=== PATIENT | female | born 1960 | race Caucasian/White ===

== ENCOUNTER → 2018-10-17 | Outpatient (CLI) | payer BC ==
[~2018-10-17] MED LIST: ALPR0.254 PO; HYDR25TA11 PO; NEBI10TA3 PO; ROSU20TA2 PO
[2018-10-17 09:51] LABS: BASOPHILS # (AUTO) 0.03 x10^3/uL (0-0.1); BASOPHILS % (AUTO) 0 % (0-1); EOSINOPHILS # (AUTO) 0.09 x10^3/uL (0-0.4); EOSINOPHILS % (AUTO) 1 % (1-7); LYMPHOCYTES # (AUTO) 1.17 x10^3/uL (1-3.4); LYMPHOCYTES % (AUTO) 18 % (22-44); MD NO; MEAN CORPUSCULAR HEMOGLOBIN 30.1 pg (27.0-34.8); MEAN CORPUSCULAR HGB CONC 33.6 g/dL (32.4-35.8); MEAN CORPUSCULAR VOLUME 89.6 fL (80-100); MEAN PLATELET VOLUME 7.2 fL (7.4-10.4); MONOCYTES # (AUTO) 0.63 x10^3/uL (0.2-0.8); MONOCYTES % (AUTO) 10 % (2-9); NEUTROPHILS # (AUTO) 4.74 x10^3/uL (1.8-6.8); NEUTROPHILS % (AUTO) 71 % (42-75); PLATELET COUNT 226 x10^3/uL (130-400); RED BLOOD COUNT 5.03 x10^6/uL (3.82-5.3); RED CELL DISTRIBUTION WIDTH 13.3 % (9.6-15.2)
[2018-10-17 09:58] LABS: INTERNATIONAL NORMALIZED RATIO 0.95 (0.93-1.1)
[2018-10-17 10:01] LABS: ALBUMIN 4.3 g/dL (3.4-5.0); ANION GAP 4 mmol/L (5-15); CHLORIDE 102 mmol/L (98-107)
[2018-10-17 10:04] LABS: ALANINE AMINOTRANSFERASE 16 U/L (12-78); ALKALINE PHOSPHATASE 82 U/L (45-117); BILIRUBIN,TOTAL 0.5 mg/dL (0.2-1.0); CREATININE 0.82 mg/dL (0.55-1.02); TOTAL PROTEIN 7.5 g/dL (6.4-8.2)
== END | disposition home or self-care (01) ==
LOC: STAR 08:47
PROVIDERS: ATTEND Specialist
DX: Z01.818 Encounter for other preprocedural examination (principal); N83.9 Noninflammatory disorder of ovary, fallopian tube and broad ligament, unspecified
CPT/HCPCS: 36415; 71046; 80053; 85025; 85610; 85730; 93005

== ENCOUNTER 2018-10-23 08:58 | Inpatient (IN) | payer BC ==
[~2018-10-23] VITALS: Ht 160 cm; Wt 68.2 kg
[2018-10-23] MEDS ORDERED: BUPIVACAINE/PF 0.25% ONE (11:44)
[2018-10-23] MEDS ORDERED: ACETAMINOPHEN 500 MG TABLET PO STA (14:22)
[2018-10-23] MEDS ORDERED: SCOPOLAMINE PATCH, 1.5MG PATCH.TD72 TD STA (14:22)
[2018-10-23] MEDS ORDERED: GABAPENTIN 300 MG CAPSULE PO STA (14:22)
[2018-10-23] MEDS: LACTATED RINGERS 1,000 ML IV SCH ×2 (14:53→14:54)
[2018-10-23] MEDS ORDERED: MIDAZOLAM 1 MG/ML, 2ML ONE (16:47)
[2018-10-23] MEDS ORDERED: FENTANYL PF 250 MCG/5ML ONE (16:48)
[2018-10-23] MEDS ORDERED: NEOSTIGMINE 1 MG/ML, 10ML ONE (16:51)
[2018-10-23] MEDS ORDERED: DEXAMETHASONE 4 MG/ML, 1ML ONE (16:51)
[2018-10-23] MEDS ORDERED: ONDANSETRON 2MG/ML, 2ML ONE (16:51)
[2018-10-23] MEDS ORDERED: GLYCOPYRROLATE 0.2MG/1ML, 5ML ONE (16:51)
[2018-10-23] MEDS ORDERED: CEFAZOLIN 1,000 MG ONE (16:51)
[2018-10-23] MEDS ORDERED: PROPOFOL 10 MG/ML, 20ML ONE (16:51)
[2018-10-23] MEDS ORDERED: ROCURONIUM 10MG/ML,5ML ONE ×2 (16:51→19:54)
[2018-10-23] MEDS ORDERED: PHENYLEPHRINE 10 MG/ML ONE (18:59)
[2018-10-23] MEDS ORDERED: OXYcodone 5 MG/5 ML ORAL.SOL UDC PO PRN (19:00)
[2018-10-23] MEDS ORDERED: PROMETHAZINE 25 MG/ML, 1ML IV PRN (19:00)
[2018-10-23] MEDS ORDERED: PROMETHAZINE 25 MG SUPP PR PRN (19:00)
[2018-10-23] MEDS ORDERED: ONDANSETRON 2MG/ML, 2ML IV PRN (19:00)
[2018-10-23] MEDS ORDERED: HYDROmorphone 2 MG/ML, 1ML IVPush PRN (19:00)
[2018-10-23] MEDS ORDERED: PROMETHAZINE 12.5 MG SUPP PR PRN (19:00)
[2018-10-23] MEDS ORDERED: ONDANSETRON ODT 8 MG PO PRN (19:00)
[2018-10-23] MEDS ORDERED: PROMETHAZINE 25 MG/ML, 1ML IM PRN ×2 (19:00)
[2018-10-23] MEDS ORDERED: hydrALAzine 20 MG/ML, 1ML IV PRN (19:00)
[2018-10-23] MEDS ORDERED: MORPHINE SULFATE 4 MG/ML, 1ML IVPush PRN (19:00)
[2018-10-23] MEDS ORDERED: MEPERIDINE/PF 25MG/0.5ML IVPush PRN (19:00)
[2018-10-23] MEDS ORDERED: LABETALOL 5MG/ML, 20ML IV PRN (19:00)
[2018-10-23] MEDS ORDERED: HALOPERIDOL 5 MG/ML IV PRN (19:00)
[2018-10-23] MEDS ORDERED: KETOROLAC 30 MG/1 ML ONE (19:09)
[2018-10-23] MEDS ORDERED: FENTANYL PF 100 MCG/2ML ONE ×3 (19:20→21:57)
[2018-10-23] MEDS ORDERED: THROMBIN 20,000 UNIT VIAL TP ONE (20:36)
[2018-10-23] MEDS ORDERED: HYDROmorphone 2 MG/ML, 1ML ONE (21:57)
[2018-10-23] MEDS ORDERED: OXYcodone 5 MG/5 ML ORAL.SOL UDC ONE (21:58)
[2018-10-23] MEDS: FENTANYL PF 100 MCG/2ML IV PRN ×2 (22:17→22:42)
[2018-10-23 23:05] VITALS: BP 127/78
[2018-10-23] MEDS: D5%-0.45NACL+KCL 20MEQ 1,000 ML IV SCH (23:21)
[2018-10-23 23:51] LABS: BASOPHILS # (AUTO) 0.01 x10^3/uL (0-0.1); BASOPHILS % (AUTO) 0 % (0-1); EOSINOPHILS # (AUTO) 0.02 x10^3/uL (0-0.4); EOSINOPHILS % (AUTO) 0 % (1-7); LYMPHOCYTES # (AUTO) 2.06 x10^3/uL (1-3.4); LYMPHOCYTES % (AUTO) 14 % (22-44); MD NO; MEAN CORPUSCULAR HEMOGLOBIN 29.7 pg (27.0-34.8); MEAN CORPUSCULAR HGB CONC 33.1 g/dL (32.4-35.8); MEAN CORPUSCULAR VOLUME 89.8 fL (80-100); MEAN PLATELET VOLUME 7.2 fL (7.4-10.4); MONOCYTES # (AUTO) 1.05 x10^3/uL (0.2-0.8); MONOCYTES % (AUTO) 7 % (2-9); NEUTROPHILS # (AUTO) 11.47 x10^3/uL (1.8-6.8); NEUTROPHILS % (AUTO) 79 % (42-75); PLATELET COUNT 286 x10^3/uL (130-400); RED BLOOD COUNT 4.76 x10^6/uL (3.82-5.3)
[2018-10-24 02:33] VITALS: BP 127/78
[2018-10-24 04:46] LABS: BASOPHILS # (AUTO) 0.01 x10^3/uL (0-0.1); BASOPHILS % (AUTO) 0 % (0-1); EOSINOPHILS % (AUTO) 0 % (1-7); LYMPHOCYTES # (AUTO) 0.34 x10^3/uL (1-3.4); LYMPHOCYTES % (AUTO) 4 % (22-44); MD NO; MEAN CORPUSCULAR HEMOGLOBIN 29.7 pg (27.0-34.8); MEAN CORPUSCULAR HGB CONC 33.1 g/dL (32.4-35.8); MEAN CORPUSCULAR VOLUME 89.7 fL (80-100); MEAN PLATELET VOLUME 7.3 fL (7.4-10.4); MONOCYTES # (AUTO) 0.97 x10^3/uL (0.2-0.8); MONOCYTES % (AUTO) 11 % (2-9); NEUTROPHILS # (AUTO) 7.42 x10^3/uL (1.8-6.8); NEUTROPHILS % (AUTO) 85 % (42-75); PLATELET COUNT 226 x10^3/uL (130-400); RED BLOOD COUNT 4.61 x10^6/uL (3.82-5.3); RED CELL DISTRIBUTION WIDTH 12.7 % (9.6-15.2)
[2018-10-24 04:57] LABS: ALBUMIN 3.3 g/dL (3.4-5.0); ANION GAP 7 mmol/L (5-15); CALCIUM 8.7 mg/dL (8.5-10.1); CHLORIDE 104 mmol/L (98-107); CREATININE 1.22 mg/dL (0.55-1.02)
[2018-10-24] MEDS: D5%-0.45NACL+KCL 20MEQ 1,000 ML IV SCH ×3 (05:55→21:15)
[2018-10-24 07:23] VITALS: BP 139/86
[2018-10-24] MEDS: FAMOTIDINE 20 MG/2 ML IV SCH ×2 (10:11→21:15)
[2018-10-24 13:02] VITALS: BP 157/93
[2018-10-24 21:25] VITALS: BP 143/88
[2018-10-25 01:40] VITALS: BP 135/92
[2018-10-25] MEDS: D5%-0.45NACL+KCL 20MEQ 1,000 ML IV SCH ×3 (04:19→19:50)
[2018-10-25 05:20] LABS: BASOPHILS # (AUTO) 0.02 x10^3/uL (0-0.1); BASOPHILS % (AUTO) 0 % (0-1); EOSINOPHILS # (AUTO) 0.01 x10^3/uL (0-0.4); EOSINOPHILS % (AUTO) 0 % (1-7); LYMPHOCYTES # (AUTO) 0.76 x10^3/uL (1-3.4); LYMPHOCYTES % (AUTO) 9 % (22-44); MD NO; MEAN CORPUSCULAR HEMOGLOBIN 30.7 pg (27.0-34.8); MEAN CORPUSCULAR HGB CONC 33.9 g/dL (32.4-35.8); MEAN CORPUSCULAR VOLUME 90.6 fL (80-100); MEAN PLATELET VOLUME 7.3 fL (7.4-10.4); MONOCYTES # (AUTO) 1.04 x10^3/uL (0.2-0.8); MONOCYTES % (AUTO) 12 % (2-9); NEUTROPHILS # (AUTO) 6.87 x10^3/uL (1.8-6.8); NEUTROPHILS % (AUTO) 79 % (42-75); PLATELET COUNT 236 x10^3/uL (130-400); RED CELL DISTRIBUTION WIDTH 12.8 % (9.6-15.2)
[2018-10-25 05:26] LABS: ANION GAP 6 mmol/L (5-15); CALCIUM 8.9 mg/dL (8.5-10.1); CHLORIDE 104 mmol/L (98-107)
[2018-10-25 05:28] LABS: CREATININE 1.01 mg/dL (0.55-1.02)
[2018-10-25 07:59] VITALS: BP 159/96
[2018-10-25] MEDS: FAMOTIDINE 20 MG/2 ML IV SCH ×2 (09:40→20:42)
[2018-10-25 13:46] VITALS: BP 164/89
[2018-10-25 19:05] VITALS: BP 157/76
[2018-10-26 00:45] VITALS: BP 150/92
[2018-10-26] MEDS: D5%-0.45NACL+KCL 20MEQ 1,000 ML IV SCH ×3 (03:00→17:38)
[2018-10-26 04:52] LABS: BASOPHILS % (AUTO) 0 % (0-1); EOSINOPHILS # (AUTO) 0.02 x10^3/uL (0-0.4); EOSINOPHILS % (AUTO) 0 % (1-7); LYMPHOCYTES # (AUTO) 0.54 x10^3/uL (1-3.4); LYMPHOCYTES % (AUTO) 7 % (22-44); MD NO; MEAN CORPUSCULAR HEMOGLOBIN 30.5 pg (27.0-34.8); MEAN CORPUSCULAR HGB CONC 33.7 g/dL (32.4-35.8); MEAN CORPUSCULAR VOLUME 90.5 fL (80-100); MEAN PLATELET VOLUME 6.8 fL (7.4-10.4); MONOCYTES # (AUTO) 0.76 x10^3/uL (0.2-0.8); MONOCYTES % (AUTO) 10 % (2-9); NEUTROPHILS # (AUTO) 6.64 x10^3/uL (1.8-6.8); NEUTROPHILS % (AUTO) 83 % (42-75); PLATELET COUNT 206 x10^3/uL (130-400); RED CELL DISTRIBUTION WIDTH 12.5 % (9.6-15.2)
[2018-10-26 05:00] LABS: ALBUMIN 2.5 g/dL (3.4-5.0); ANION GAP 6 mmol/L (5-15); CALCIUM 8.6 mg/dL (8.5-10.1); CHLORIDE 104 mmol/L (98-107)
[2018-10-26 05:03] LABS: ALANINE AMINOTRANSFERASE 47 U/L (12-78); ALKALINE PHOSPHATASE 64 U/L (45-117); BILIRUBIN,TOTAL 0.7 mg/dL (0.2-1.0); CREATININE 0.82 mg/dL (0.55-1.02); TOTAL PROTEIN 5.8 g/dL (6.4-8.2)
[2018-10-26 07:21] VITALS: BP 153/89
[2018-10-26] MEDS: FAMOTIDINE 20 MG/2 ML IV SCH ×2 (08:52→21:22)
[2018-10-26 12:25] VITALS: BP 156/84
[2018-10-26 19:01] VITALS: BP 152/92
[2018-10-27] MEDS: D5%-0.45NACL+KCL 20MEQ 1,000 ML IV SCH ×4 (00:17→21:12)
[2018-10-27 03:34] VITALS: BP 157/98
[2018-10-27 06:54] VITALS: BP 166/101
[2018-10-27 07:04] VITALS: BP 155/93
[2018-10-27] MEDS: FAMOTIDINE 20 MG/2 ML IV SCH ×2 (09:43→21:12)
[2018-10-27 13:20] VITALS: BP 169/97
[2018-10-27 18:49] VITALS: BP 154/95
[2018-10-27] MEDS ORDERED: ONDANSETRON 2MG/ML, 2ML IVPush PRN (19:00)
[2018-10-27] MEDS: NEBIVOLOL HCL 5 MG TABLET PO SCH (20:08)
[2018-10-27] MEDS: ATORVASTATIN 80 MG TABLET PO SCH (20:08)
[2018-10-28 01:55] VITALS: BP 151/93
[2018-10-28] MEDS: D5%-0.45NACL+KCL 20MEQ 1,000 ML IV SCH ×4 (03:46→23:27)
[2018-10-28 07:06] VITALS: BP 138/89
[2018-10-28] MEDS ORDERED: OXYcodone/APAP 5/325MG TABLET PO PRN (08:30)
[2018-10-28] MEDS: NEBIVOLOL HCL 5 MG TABLET PO SCH (09:01)
[2018-10-28] MEDS: FAMOTIDINE 20 MG/2 ML IV SCH (09:01)
[2018-10-28 09:48] LABS: BASOPHILS # (AUTO) 0.02 x10^3/uL (0-0.1); BASOPHILS % (AUTO) 0 % (0-1); EOSINOPHILS % (AUTO) 1 % (1-7); LYMPHOCYTES # (AUTO) 0.88 x10^3/uL (1-3.4); LYMPHOCYTES % (AUTO) 10 % (22-44); MD NO; MEAN CORPUSCULAR HEMOGLOBIN 30.3 pg (27.0-34.8); MEAN CORPUSCULAR HGB CONC 33.7 g/dL (32.4-35.8); MEAN CORPUSCULAR VOLUME 89.9 fL (80-100); MEAN PLATELET VOLUME 6.3 fL (7.4-10.4); MONOCYTES # (AUTO) 1.02 x10^3/uL (0.2-0.8); MONOCYTES % (AUTO) 12 % (2-9); NEUTROPHILS # (AUTO) 6.56 x10^3/uL (1.8-6.8); NEUTROPHILS % (AUTO) 77 % (42-75); PLATELET COUNT 329 x10^3/uL (130-400); RED BLOOD COUNT 3.94 x10^6/uL (3.82-5.3); RED CELL DISTRIBUTION WIDTH 12.7 % (9.6-15.2)
[2018-10-28 09:51] LABS: ALANINE AMINOTRANSFERASE 29 U/L (12-78); ALBUMIN 2.6 g/dL (3.4-5.0); ANION GAP 6 mmol/L (5-15); CALCIUM 8.7 mg/dL (8.5-10.1); CHLORIDE 103 mmol/L (98-107); CREATININE 0.71 mg/dL (0.55-1.02)
[2018-10-28 09:53] LABS: ALKALINE PHOSPHATASE 68 U/L (45-117); BILIRUBIN,TOTAL 0.5 mg/dL (0.2-1.0); TOTAL PROTEIN 6.2 g/dL (6.4-8.2)
[2018-10-28] MEDS: ACETAMINOPHEN 325 MG TABLET PO PRN ×2 (09:58→19:32)
[2018-10-28 13:04] VITALS: BP 154/90
[2018-10-28 20:00] VITALS: BP 105/64
[2018-10-28] MEDS: FAMOTIDINE 20 MG TABLET PO SCH (20:32)
[2018-10-28] MEDS: ATORVASTATIN 80 MG TABLET PO SCH (20:32)
[2018-10-29 02:13] VITALS: BP 131/83
[2018-10-29] MEDS: ACETAMINOPHEN 325 MG TABLET PO PRN ×2 (06:14→12:34)
[2018-10-29] MEDS: D5%-0.45NACL+KCL 20MEQ 1,000 ML IV SCH (06:14)
[2018-10-29 07:05] VITALS: BP 143/89
[2018-10-29] MEDS: FAMOTIDINE 20 MG TABLET PO SCH ×2 (07:38→19:41)
[2018-10-29] MEDS: NEBIVOLOL HCL 5 MG TABLET PO SCH (16:55)
[2018-10-29] MEDS: IBUPROFEN 200 MG TABLET PO PRN (19:41)
[2018-10-29] MEDS: ATORVASTATIN 80 MG TABLET PO SCH (19:42)
[2018-10-29 19:58] VITALS: BP 157/89
[2018-10-30] MEDS: ACETAMINOPHEN 325 MG TABLET PO PRN ×2 (02:17→20:12)
[2018-10-30 04:25] LABS: BASOPHILS # (AUTO) 0.03 x10^3/uL (0-0.1); BASOPHILS % (AUTO) 0 % (0-1); EOSINOPHILS % (AUTO) 4 % (1-7); LYMPHOCYTES # (AUTO) 1.07 x10^3/uL (1-3.4); LYMPHOCYTES % (AUTO) 14 % (22-44); MD NO; MEAN CORPUSCULAR HEMOGLOBIN 30.6 pg (27.0-34.8); MEAN CORPUSCULAR HGB CONC 33.8 g/dL (32.4-35.8); MEAN CORPUSCULAR VOLUME 90.4 fL (80-100); MEAN PLATELET VOLUME 6.6 fL (7.4-10.4); MONOCYTES # (AUTO) 1.02 x10^3/uL (0.2-0.8); MONOCYTES % (AUTO) 14 % (2-9); NEUTROPHILS # (AUTO) 5.05 x10^3/uL (1.8-6.8); NEUTROPHILS % (AUTO) 68 % (42-75); PLATELET COUNT 325 x10^3/uL (130-400); RED BLOOD COUNT 3.64 x10^6/uL (3.82-5.3); RED CELL DISTRIBUTION WIDTH 12.6 % (9.6-15.2)
[2018-10-30 04:36] LABS: ALANINE AMINOTRANSFERASE 25 U/L (12-78); ALBUMIN 2.6 g/dL (3.4-5.0); ANION GAP 9 mmol/L (5-15); CALCIUM 8.7 mg/dL (8.5-10.1); CHLORIDE 102 mmol/L (98-107)
[2018-10-30 04:38] LABS: ALKALINE PHOSPHATASE 76 U/L (45-117); BILIRUBIN,TOTAL 0.5 mg/dL (0.2-1.0); CREATININE 0.78 mg/dL (0.55-1.02); TOTAL PROTEIN 5.8 g/dL (6.4-8.2)
[2018-10-30 07:17] VITALS: BP 155/85
[2018-10-30] MEDS: FAMOTIDINE 20 MG TABLET PO SCH ×2 (08:45→20:12)
[2018-10-30] MEDS: NEBIVOLOL HCL 5 MG TABLET PO SCH (08:45)
[2018-10-30] MEDS: IBUPROFEN 200 MG TABLET PO PRN (08:54)
[2018-10-30 19:56] VITALS: BP 145/82
[2018-10-30] MEDS: ATORVASTATIN 80 MG TABLET PO SCH (20:13)
[2018-10-31 07:29] VITALS: BP 132/86
[2018-10-31] MEDS: FAMOTIDINE 20 MG TABLET PO SCH ×2 (12:10→21:11)
[2018-10-31] MEDS: ACETAMINOPHEN 325 MG TABLET PO PRN ×2 (14:20→21:11)
[2018-10-31] MEDS ORDERED: NEBIVOLOL HCL 5 MG TABLET PO SCH (16:30)
[2018-10-31 19:36] VITALS: BP 150/80
[2018-10-31] MEDS: ATORVASTATIN 80 MG TABLET PO SCH (21:00)
[2018-11-01] MEDS: FAMOTIDINE 20 MG TABLET PO SCH (07:46)
[2018-11-01 09:25] VITALS: BP 133/85
[2018-11-01] MEDS: ACETAMINOPHEN 325 MG TABLET PO PRN (10:37)
[2018-11-01] MEDS ORDERED: OXYC-302 PO (10:49)
[2018-11-01] MEDS ORDERED: ONDA4TAB7 PO (10:49)
== END 2018-11-01 10:57 | disposition home or self-care (01) | DRG 737 ==
LOC: ORIP 12:49 → 3NW 23:01 → DCLOUNGE 11-01 10:47
PROVIDERS: ADMIT Specialist; ATTEND Specialist
PROC: 0UB70ZZ Excision of Bilateral Fallopian Tubes, Open Approach (ICD-10-PCS; 2018-10-23)
PROC: 0UB20ZZ Excision of Bilateral Ovaries, Open Approach (ICD-10-PCS; 2018-10-23)
PROC: 0BBT0ZZ Excision of Diaphragm, Open Approach (ICD-10-PCS; 2018-10-23)
PROC: 0DTU0ZZ Resection of Omentum, Open Approach (ICD-10-PCS; 2018-10-23)
PROC: 0UT90ZZ Resection of Uterus, Open Approach (ICD-10-PCS; principal; 2018-10-23 16:30)
DX: C56.1 Malignant neoplasm of right ovary (principal); K56.7 Ileus, unspecified; Z53.31 Laparoscopic surgical procedure converted to open procedure; M19.90 Unspecified osteoarthritis, unspecified site; I10 Essential (primary) hypertension; E78.5 Hyperlipidemia, unspecified; C56.2 Malignant neoplasm of left ovary; R00.2 Palpitations; Z79.899 Other long term (current) drug therapy
CPT/HCPCS: 36415; 74018; J3490; 71045; 80048; 80053; 82040; 82570; 85025; 86850; 86900; 86923; 88305; 88307; G0378; J0690; J1100; J1170; J1885; J2250; J2270; J2405; J2704; J2710; J3010; C1765; J2370; J3480; J7120

== ENCOUNTER 2018-12-01 09:23 | Outpatient (CLI) | payer BC | END 2018-12-01 23:59 | disposition home or self-care (01) | LOC: CFH 09:23 | PROVIDERS: ATTEND Specialist | DX: C56.9 Malignant neoplasm of unspecified ovary (principal); K76.9 Liver disease, unspecified; Z90.710 Acquired absence of both cervix and uterus | CPT/HCPCS: 71260; 74177; Q9967 ==

== ENCOUNTER → 2020-07-31 | Outpatient (CLI) | payer OTHER, BC ==
[~2020-07-31] MED LIST changes: +ASCO500T8 PO; +CALC-55 PO; +CHOL10003 PO; +GLUC1CAP40 PO; +HYDR-826 PO; -HYDR25TA11 PO; +MAGN250T8 PO; +MULT-449 PO; +ONDA4TAB7 PO; +OXYC1TAB14 PO; +turmeric/ginger PO
[2020-07-31 09:46] LABS: BASOPHILS % (AUTO) 1 % (0-1); EOSINOPHILS % (AUTO) 1 % (1-7); LYMPHOCYTES % (AUTO) 20 % (22-44); MEAN CORPUSCULAR HEMOGLOBIN 31.6 pg (27.0-34.8); MEAN CORPUSCULAR HGB CONC 34.3 g/dL (32.4-35.8); MEAN PLATELET VOLUME 6.8 fL (7.4-10.4); MONOCYTES % (AUTO) 12 % (2-9); NEUTROPHILS % (AUTO) 66 % (42-75); PLATELET COUNT 210 x10^3/uL (130-400); RED BLOOD COUNT 4.99 x10^6/uL (3.82-5.3); RED CELL DISTRIBUTION WIDTH 12.7 % (9.6-15.2)
[2020-07-31 09:49] LABS: MD NO
[2020-07-31 09:58] LABS: ALANINE AMINOTRANSFERASE 22 U/L (12-78); ALBUMIN 4.3 g/dL (3.4-5.0); ANION GAP 4 mmol/L (5-15); CALCIUM 9.5 mg/dL (8.5-10.1); CHLORIDE 106 mmol/L (98-107); CREATININE 0.85 mg/dL (0.55-1.02)
[2020-07-31 09:59] LABS: INTERNATIONAL NORMALIZED RATIO 0.98 (0.93-1.1); PROTHROMBIN TIME 10.5 Seconds (9.6-11.5)
[2020-07-31 10:00] LABS: ALKALINE PHOSPHATASE 83 U/L (45-117); BILIRUBIN,TOTAL 0.5 mg/dL (0.2-1.0); TOTAL PROTEIN 7.4 g/dL (6.4-8.2)
== END | disposition home or self-care (01) ==
LOC: STAR 08:47
PROVIDERS: ATTEND Specialist
DX: Z01.818 Encounter for other preprocedural examination (principal); C56.9 Malignant neoplasm of unspecified ovary; Z15.89 Genetic susceptibility to other disease; Z51.11 Encounter for antineoplastic chemotherapy; J98.4 Other disorders of lung
CPT/HCPCS: 36415; 71046; 80053; 85025; 85610; 85730; 86304; 93005

== ENCOUNTER 2020-08-12 08:51 | Inpatient (IN) | payer BC, OTHER ==
[~2020-08-12] VITALS: Ht 160 cm; Wt 64.5 kg
[2020-08-12 13:09] VITALS: BP 153/98
[2020-08-12] MEDS ORDERED: CHLORHEXIDINE 15 ML UDC PO ONE (13:30)
[2020-08-12] MEDS ORDERED: LACTATED RINGERS 1,000 ML IV SCH (13:30)
[2020-08-12] MEDS ORDERED: HEPARIN 1,000 UNITS/ML, 10ML ONE (13:37)
[2020-08-12] MEDS ORDERED: EPINEPHRINE 1 MG/ML, 1ML ONE (13:37)
[2020-08-12] MEDS ORDERED: BUPIVACAINE/PF 0.5% ONE (13:37)
[2020-08-12] MEDS ORDERED: MIDAZOLAM 1 MG/ML, 2ML ONE (13:48)
[2020-08-12] MEDS ORDERED: FENTANYL PF 250 MCG/5ML ONE (13:48)
[2020-08-12] MEDS ORDERED: CEFOTETAN 2 GM ONE (14:25)
[2020-08-12] MEDS ORDERED: NEOSTIGMINE 1 MG/ML, 10ML ONE (15:14)
[2020-08-12] MEDS ORDERED: DEXAMETHASONE 4 MG/ML, 1ML ONE (15:14)
[2020-08-12] MEDS ORDERED: PROPOFOL 10 MG/ML, 20ML ONE (15:14)
[2020-08-12] MEDS ORDERED: LIDOCAINE-MPF 2% ,5ML ONE (15:14)
[2020-08-12] MEDS ORDERED: ONDANSETRON 2MG/ML, 2ML ONE (15:14)
[2020-08-12] MEDS ORDERED: GLYCOPYRROLATE 0.2MG/1ML, 5ML ONE (15:14)
[2020-08-12] MEDS ORDERED: KETOROLAC 30 MG/1 ML ONE (15:14)
[2020-08-12] MEDS ORDERED: ROCURONIUM 10MG/ML,5ML ONE (15:14)
[2020-08-12] MEDS ORDERED: MEPERIDINE/PF 25MG/0.5ML IVPush PRN (16:00)
[2020-08-12] MEDS ORDERED: FENTANYL PF 100 MCG/2ML IV PRN (16:00)
[2020-08-12] MEDS ORDERED: LORazepam 2 MG/ML, 1ML IVPush PRN (16:00)
[2020-08-12] MEDS ORDERED: HYDROmorphone 1 MG/ML, 1ML INJ IVPush PRN (16:00)
[2020-08-12] MEDS ORDERED: LABETALOL 5MG/ML, 20ML IV PRN (16:00)
[2020-08-12] MEDS ORDERED: PROMETHAZINE 25 MG/ML, 1ML IVPush PRN (16:00)
[2020-08-12] MEDS ORDERED: ACETAMINOPHEN 325 MG TABLET PO PRN (16:00)
[2020-08-12] MEDS ORDERED: ALBUTEROL SULFATE 2.5 MG/3 ML NPPB PRN (16:00)
[2020-08-12] MEDS ORDERED: OXYcodone 5 MG/5 ML ORAL.SOL UDC PO PRN (16:00)
[2020-08-12] MEDS ORDERED: hydrALAzine 20 MG/ML, 1ML IV PRN (16:00)
[2020-08-12] MEDS ORDERED: METHOCARBAMOL 1,000 MG in DEXTROSE 5% 100 ML IV PRN (16:00)
== END 2020-08-12 17:30 | disposition home or self-care (01) | DRG 756 ==
LOC: ORIP 12:47 → EDSTATUS 15:30
PROVIDERS: ADMIT Specialist; ATTEND Specialist
PROC: 0WBH4ZX Excision of Retroperitoneum, Percutaneous Endoscopic Approach, Diagnostic (ICD-10-PCS; principal; 2020-08-12 15:00)
DX: C56.9 Malignant neoplasm of unspecified ovary (principal); K66.0 Peritoneal adhesions (postprocedural) (postinfection); Z51.11 Encounter for antineoplastic chemotherapy; I10 Essential (primary) hypertension; E78.5 Hyperlipidemia, unspecified; M19.90 Unspecified osteoarthritis, unspecified site; K21.9 Gastro-esophageal reflux disease without esophagitis; Z20.822 Contact with and (suspected) exposure to COVID-19; Z51.89 Encounter for other specified aftercare
CPT/HCPCS: 36415; J3490; S0020; 86850; 86900; 86923; 88305; J0171; J1100; J1644; J1885; J2250; J2405; J2704; J2710; J3010; J7120; U0003